=== PATIENT | male | born 1985 | race Caucasian/White ===

== ENCOUNTER 2022-07-18 10:59 | Emergency (ER) | payer OTHER ==
[2022-07-18 12:08] LABS: #Eosinphils 0.1 thou/uL (0.0-0.7); #Lymphocytes 2.7 thou/uL (1.20-3.40); #Monocytes 0.7 thou/uL (0.11-0.59); #Neutrophils 3.9 thou/uL (1.40-6.50); %Basophils 0.6 % (0.0-1.0); %Eosinophils 1.9 % (0.0-10.0); %Lymphocytes 35.8 % (21.0-51.0); %Neutrophils 52.8 % (42.0-75.0); Hemoglobin 16.4 g/dL (14.0-18.0); Mean Corpuscular HGB CONC 34.2 g/dL (32.0-36.0); Mean Corpuscular Hemoglobin 30.8 pg (27.0-31.0); Mean Corpuscular Volume 89.9 fl (78.0-98.0); Mean Platelet Volume 10.1 fL (7.4-10.4); Platelet Count 157 10x3/uL (130-400); RBC Distribution Width 11.7 % (11.5-14.5); Red Blood Cell (RBC) Count 5.35 mill/uL (4.70-6.10); White Blood Cell (WBC) Count 7.5 10x3/uL (4.8-10.8)
[2022-07-18 12:55] LABS: ALT (SGPT) 13 U/L (8-55); AST (SGOT) 15 U/L (5-34); Albumin 4.2 g/dL (3.5-5.0); Alkaline Phosphatase 67 U/L (40-110); Anion Gap 13 mmol/L (10-20); BUN (Urea Nitrogen) 15 mg/dL (8.9-20.6); Bilirubin, Total 0.8 mg/dL (0.2-1.2); CK (CPK) 79 U/L (30-200); Calc. Creatinine Clearance 0 mL/min (70-130); Calcium 9.2 mg/dL (7.8-10.44); Carbon Dioxide 24 mmol/L (22-29); Chloride 108 mmol/L (98-107); Estimated GFR 96; Globulin 2.4 g/dL (2.4-3.5); Glucose 91 mg/dL (70-105); Lipase 17 U/L (8-78); Potassium 4.5 mmol/L (3.5-5.1); Protein, Total 6.6 g/dL (6.0-8.3); Sodium 140 mmol/L (136-145)
== END 2022-07-18 13:33 ==
LOC: EEVIPCON 10:59 → ERS 10:59
DX: R07.89 Other chest pain (principal); I10 Essential (primary) hypertension
CPT/HCPCS: 36415; 71045; 80053; 82550; 83690; 83880; 84484; 85025; 93005